=== PATIENT | male | born 1975 | race Caucasian/White ===

== ENCOUNTER 2017-01-12 11:59 | Inpatient (IN) | payer OTHER ==
[~2017-01-12] VITALS: Ht 170.2 cm; Wt 79.9 kg
--- NOTE | ~2017-01-12 | RESCARESUM ---
"PATIENT: NOEMY AUGUSTIN | | [facility] UNIT #: [id number] | [address] AGE/SEX: 41 M : 75 | [address] | [place] [address] ADMIT/REG DATE: 01/12/17 | ROOM: [facility] LOC: ADTC | [facility] | Summary of Residential Care Primary Counselor: Meghan HDZ Date of Admission: 01/12/17 Date of Discharge: 01/16/17 Referral Source: 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 Continued Obstacles to Sobriety/Relapse Issues: Not completing treatment, not going to sober living, not getting a sponsor, hanging around old using friends, not learning to work a strong program of recovery. Family Issues Addressed: No issues were addressed. Y Individual Therapy Y Group Therapy Y Educational Series on Substance Abuse N Parents/Significant Others Attended Family Program N Acute Medical Problems During the Course of Treatment N Transferred to Hospital During the Course of Treatment N Accepting of Substance Abuse Problem Y Non-accepting of Substance Abuse Problem N Required Psychological or Psychiatric Consultation During the Course of Treatment Completed AA Step # During This Level of Care Significant Incidences During Treatment: Client complained that he was craving on Sat, however, agreed to stay in treatment thru the weekend, but made the decision to leave treatment the following Monday. Reason For Discharge: N Completed Residential TX Goals and Ready For Next Level of Care Y Left Tx Against Medical Advice/Treatment Goals Not Complete N Completed Residential Tx Goals But Refusing Continuing Care Recommendations N Discharged Due to Noncompliance/Treatment Goals not Completed N Discharged Earlier Than Planned Due to: PATIENT: NOEMY AUGUSTIN | | [facility] UNIT #: [id number] | [address] AGE/SEX: 41 M : 75 | [address] | [place] [address] ADMIT/REG DATE: 01/12/17 | [facility] | ADTC | Summary of Residential Care Continuing Care Plan/Recommendations: N Intensive Partial Care Y Sponsor N Partial Care Y AA Meetings/NA Meetings N Outpatient N Co-dependency Services N Therapeutic Community Y [address] N Mental Health Therapy N Marriage Counseling Y Other Specific Continuing Care Plan: It is recommended that Noemy return to a residential treatment program, follow all aftercare recommendations set forth by his primary counselor, which may very well include care home house. It is also recommended he abstain from all drugs and alcohol, begin attending AA/NA meetings, get and call a sponsor on a regular basis and learn how to work a strong program of recovery. PRIMARY COUNSELOR: ANDREINA Simmons"
--- NOTE | 2017-01-12 16:19 | NUR ---
INITIAL SESSION 1 HR: Clt was oriented to tx plans, schedules and what to expect. He stated he is here for his first tx. and has been using meth for 17 yrs. He advised he is , but seperated, had a great job but his meth use has gotten so bad, he isn't sure what he's got right now. He stated he is craving bad today, and heard to stick it out. He is to work on his initial paperwork.
--- NOTE | 2017-01-12 22:13 | NUR ---
Education 1 HR: Clt watched video by Anil "Diana Keene" with staff present.
--- NOTE | 2017-01-12 22:45 | NUR ---
Tech Note: Clt attended GM and onsite AA mtg. Searched, checked into room and had first intro to grp. SE was arriving tx
--- NOTE | 2017-01-13 00:33 | NUR ---
ADMISSION NOTE Rights/Responsibilities: Copy given and explained to client. Signed and accepted by client. Client oriented to physical lay out of the ADTC unit, given Big Book and admission packet. A Danis was assigned. Tech note: Tj is a 41 yr old male who came to tx from [facility] being brought by staff. Minht had been in detox for 14 days. Resides in [place] living with . DOC is meth last use 16 days ago. Clt searched with no contraband found, checked into room and had first intro to grp.
--- NOTE | 2017-01-13 04:46 | NUR ---
Bed Note: Clt lay motionless in bed with eyes closed showing no distress at all bed checks.
--- NOTE | 2017-01-13 11:30 | NUR ---
Group 1.5 hr/ 11:1 Clients all heard peers share in discussion about when is it addiction with loss of control or being a "functional addict" as peer asked questions. Also they introduced self to newcomer. This client was attentive.
--- NOTE | 2017-01-13 16:00 | NUR ---
PEER REVIEWS 1.25 HRS: Clt participated in peer reviews and took a risk to give open and honest feedback to those receiving a review.
--- NOTE | 2017-01-13 16:38 | NUR ---
Tech Note: Client listened to speaker Ty Woodard and is working on the Big Book.
--- NOTE | 2017-01-13 21:23 | NUR ---
Tech note: client watched TV and movies. SE:speaker
--- NOTE | 2017-01-14 05:00 | NUR ---
Bed note: Client was in bed with eyes closed and no distress at all bed checks.
--- NOTE | 2017-01-14 09:48 | NUR ---
FAMILY CONTACT: Clt explained his estranged is out of town camping this weekend, so will wait until next week to call her.
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
--- NOTE | 2017-01-14 16:58 | NUR ---
Tech Note: Client attended the A.A.Meeting at [facility] and [place] and is working on Eduquia Book. Client was late to Morning Meditation also.
--- NOTE | 2017-01-14 23:05 | NUR ---
Tech note: Client walked around the park a few times for rec. Client walked to an off site AA meeting. Client was late to rec. SE: Meeting
--- NOTE | 2017-01-15 05:04 | NUR ---
Bed note: client was in bed with eyes closed and no distress at all bed checks.
--- NOTE | 2017-01-15 15:37 | NUR ---
TECH NOTE: Client participated in big book study, attended latter day, completed chores and watched tv/movies.
--- NOTE | 2017-01-15 23:46 | NUR ---
tech note: client came to tech station stating he wanted to leave treatment 1844. Client wanted to make a phone call & was told by [employer] on-call counselor would need to be called to get permission due to he doesn't have phone priviledges yet. On-call was notified and talked with client. He was given permission to make a 10 minute call but was unable to make contact. Client didn't ask to make the again. Client watched tv & movies. SE: nap
--- NOTE | 2017-01-16 04:47 | NUR ---
Bed note: client was in bed with eyes closed and no distress at all bed checks.
--- NOTE | 2017-01-26 08:13 | HP ---
ADMIT: 01/12/2017 RM/LOC: [facility] MR#: [id number] [address] [facility] [address] [place] [phone] CLAYTON AUGUSTIN [address] [place] [address] History and Physical SEX: M AGE: 41 : 1975 DATE OF SERVICE: CHIEF COMPLAINT: Chemical dependency. HISTORY OF PRESENT ILLNESS: Clayton is a 41-year-old, male, who is part [place], part [place], admitted to residential level of treatment on 01/12 after detox at [facility], 12/29 through the 01/12. He states he just got tired of the drugs and alcohol and checked himself into treatment after talking to his whom he is with. Clayton's drug of choice on admission is methamphetamines. He first started using meth at around 20. He initially snorted it daily. In 20s, he used about 0.25 gram a day. In his 30s, he smoked about a gram a day. He states the last couple years he has been using an 8-ball or more daily and has done IV approximately 5 times. He denies sharing or using dirty needles. He admits to dealing and running drugs. His last use was approximately 12/28 or 12/29 prior to checking himself in [facility]. He was in [facility] 12/29 through the 01/12. He states growing up, he was around cocaine and used that all the time. It was actually his drug of choice in his teenage years. He has done it daily off and on since. He has basically switched back and forth from cocaine and methamphetamine. Second drug of choice is alcohol. He first started drinking around 13 years of age with his cousins. High school, he drank about once a month. In his 20s, he started drinking 5 to 7 days a week usually 6 to 12 beers daily. He states been drinking 6 to 12 beers daily off and on ever since. His last drink was about a month ago. He admits to having shakes and tremors, but denies withdrawal seizures, DTs, or hallucinations. He has had three DUIs. Third drug of choice is cannabis. He first started smoking pot around 12. He states he basically smoked daily from 12 to 20. He smoked about an ounce a week. He stated in his late 20s, he quit smoking pot due to his job and drug screening. He admits to using acid hundreds of times, mushrooms hundreds of times, Peyote once, and opium once. PAST MEDICAL HISTORY: OPERATIONS: None. ILLNESSES: None. MEDICATIONS: None. ALLERGIES: NONE KNOWN. SOCIAL HISTORY: Is that of a 41-year-old mixed [place]. He is referred by his whom he is with. He is once and ADMIT: 01/12/2017 RM/LOC: [facility] MR#: [id number] [address] [address] [place] [address] History and Physical SEX: M AGE: 41 : 1975 currently. He has two daughters and two sons. He is currently unemployed and previously worked in the [employer] business. He is currently smoking about two packs of cigarettes daily. FAMILY HISTORY: Includes cancer in maternal grandmother, and cousin from sickle cell anemia. He additionally has a cousin who use drugs. He has numerous uncles who are alcoholics. His mother used alcohol and drugs. Step father uses alcohol and pot. REVIEW OF SYSTEMS: Remarkable for intermittent dental pain. Remainder of review of systems is negative. PHYSICAL EXAMINATION: VITAL SIGNS: He is 5 feet 7 inches with a weight of 80 kg. Blood pressure 119/91, pulse 98, with temp 97.8. GENERAL APPEARANCE: A 41-year-old male, who is alert, oriented, appears stated age. HEENT: Pupils are reactive. Extraocular muscle intact. TMs normal. Throat unremarkable. Dentition looks in good repair. NECK: Normal. HEART: Regular without murmur. LUNGS: Clear. ABDOMEN: Soft, nontender, benign. AND RECTAL: Deferred. EXTREMITIES: Reveal no clubbing, cyanosis, or edema. NEUROLOGIC: Exam is normal including light touch, strength, DTRs. LABORATORY DATA: Recent labs include a UA, CBC, and complete metabolic panel done at [facility] on 12/29, they were all essentially normal. ASSESSMENT: 1. Stimulant use disorder, severe with history of IV use with recent negative HIV and hepatitis C. 2. Alcohol use disorder, severe. 3. Cannabis use disorder, severe in full sustained remission. 4. Tobacco use disorder. PLAN: He has been started on multivitamin and thiamine given his history of alcohol abuse and dependency. We will proceed with drug and alcohol abuse dependency treatment and counseling and further evaluation and management based on course during hospitalization. Please see his hospital record for the details. Raffi Salmon MD/ elsy JOB #: [id number] CC: Raffi Salmon, Attending Physician ADMIT: 01/12/2017 RM/LOC: A.511 [facility] MR#: [id number] [address] [place] [id number] CLAYTON AUGUSTIN [address] [place] [address] History and Physical SEX: M AGE: 41 : 1975 NO FAMILY PHYSICIAN, Family Physician
--- NOTE | 2017-03-19 17:18 | DS ---
ADMIT: 01/12/2017 RM/LOC: Josiane [facility] MR#: [id number] [address] [place] [id number] CLAYTON AUGUSTIN [address] [place] [address] General Discharge Summary SEX: M AGE: 41 : 1975 ADMISSION DATE: 01/12/2017 DISCHARGE DATE: 01/16/2017 INDICATION FOR HOSPITALIZATION: Clayton is a 41-year-old male, admitted to residential level treatment at [facility] on January 12 after detox at [facility] December 29 through the . He states he got tired of drugs and alcohol and wanted to go to treatment. His drug of choice is methamphetamines. His second drug of choice is alcohol. Third drug of choice is cannabis. Please see his admission H and P for further details regarding his history of present illness, past medical history, physical exam, and assessment at the time of hospitalization. HOSPITAL COURSE: On admission, Clayton was started on multivitamin and thiamine given his history of alcohol abuse dependency. Melatonin was added given his sleep disorder. Primary care counselor assigned was Meghan Tenorio. During treatment, he underwent individual and group therapy sessions on drug and alcohol abuse and dependency. He completed no steps of Alcoholics Anonymous. He was overall non accepting of his substance abuse problems. No family issues were addressed. Relapse triggers were identified. Relapse prevention plan was outlined. Reason for discharge. The patient left treatment against medical advice. Aftercare recommendations include completion of residential level treatment program with alf house placement, sponsor assignment, and active AA and NA meeting involvement. LABORATORY AND X-RAY DATA: None during hospitalization. ADMIT: 01/12/2017 RM/LOC: A.Jg [facility] MR#: [id number] [facility] [address] [address] CLAYTON AUGUSTIN [address] [place] [address] General Discharge Summary SEX: M AGE: 41 : 1975 DISCHARGE MEDICATIONS: None as he left AMA. DISCHARGE DIAGNOSES: 1. Stimulant use disorder, severe with history of IV use with recent negative HIV and hepatitis C testing. 2. Alcohol use disorder, severe. 3. Cannabis use disorder, severe in full sustained remission. 4. Tobacco use disorder. PROCEDURES: Include failed attempts at drug and alcohol abuse dependency treatment and counseling. Please see his hospital record for further details. Raffi Salmon MD/ elsy JOB #: [id number] CC: Raffi Salmon MD, Attending Physician NO FAMILY PHYSICIAN, Family Physician
== END 2017-01-16 15:10 | disposition left against medical advice (07) | DRG 894 ==
LOC: ADTC 12:51
PROVIDERS: ADMIT Family Medicine
PROC: HZ34ZZZ Individual Counseling for Substance Abuse Treatment, Interpersonal (ICD-10-PCS; principal; 2017-01-12)
PROC: HZ43ZZZ Group Counseling for Substance Abuse Treatment, 12-Step (ICD-10-PCS; principal; 2017-01-12)
DX: F15.20 Other stimulant dependence, uncomplicated (principal); F10.20 Alcohol dependence, uncomplicated; F12.21 Cannabis dependence, in remission; F17.210 Nicotine dependence, cigarettes, uncomplicated; Z72.89 Other problems related to lifestyle